=== PATIENT | female | born 1975 | race Two or more races ===

== ENCOUNTER 2025-01-09 21:33 | Emergency (ER) | payer MEDICAID, OTHER ==
[~2025-01-09] VITALS: Ht 152.4 cm; Wt 62.0 kg
[2025-01-09 22:22] VITALS: BP 131/84; PULSE 78; RESP 18; TEMP 98.4; O2SAT 98
[2025-01-09] MEDS: KETOROLAC TROMETH 60MG/2ML VIAL IM ONE (22:56)
--- NOTE | 2025-01-09 23:14 | DVH ---
CLINICAL INDICATION: PAIN TECHNIQUE: XY R TIB FIB XRAY Comparison: None FINDINGS/IMPRESSION: : There is no evidence of acute fracture or dislocation. Soft tissues are unremarkable.
--- NOTE | 2025-01-09 23:22 | ED.PDOC ---
Back pain HPI HPI Comments PT PRESENTED TO ED FOR RLE PAIN X1 DAY. PT DENIED NUMBNESS/TINGLING, (-) TRAUMA/FALLS/INJURIES. PT STATED SHE WAS TENDING TO HER PLANTS WHEN SUDDEN ONSET OF SHARP PAIN RADIATING FROM LOWER CALF TO THIGH ONLY WHEN BARING WEIGHT. CSM-INTACT. NORMAL ROM. NO SKIN DISCOLORATION NOTED. 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 History Family History Family History: Unknown Social History Smoker: Non-Smoker Alcohol: Denies ETOH Use Drugs: Denies Drug Use Constitutional: denies: chills, diaphoresis, fatigue, fever, malaise, sweats, weakness, others EENTM: denies: blurred vision, double vision, ear bleeding, ear discharge, ear drainage, ear pain, ear ringing, eye pain, eye redness, hearing loss, mouth pain, mouth swelling, nasal discharge, nose bleeding, nose congestion, nose pain, photophobia, tearing, throat pain, throat swelling, voice changes, others Cardiovascular: denies: chest pain, dizzy spells, diaphoresis, Dyspnea on exertion, edema, irregular heart beat, left arm pain, lightheadedness, palpitati ons, PND, syncope, others Gastrointestinal: denies: abdomen distended, abdominal pain, blood streaked bowels, constipated, diarrhea, dysphagia, difficulty swallowing, hematemesis, melena, nausea, poor appetite, poor fluid intake, rectal bleeding, rectal pain, vomiting, others Genitourinary: denies: abnormal vagina bleeding, burning, dyspareunia, dysuria, flank pain, frequency, hematuria, incontinence, pain, , vagina discharge, urgency, others Neurological: denies: dizziness, fainting, headache, left sided numbness, left sided weakness, numbness, paresthesia, pre-existing deficit, right sided numbness, right sided weakness, seizure, speech problems, tingling, tremors, weakness, others Musculoskeletal: reports: others (Right lower leg pain); denies: back pain, gout, joint pain, joint swelling, muscle pain, muscle stiffness, neck pain Integumetry: denies: bruises, change in color, change in hair/nails, dryness, laceration, lesions, lumps, rash, wounds, others Allergic/Immunocompromised: denies: Difficulty Healing, Frequent Infections, Hives, Itching, others Hematologic/Lymphatic: denies: anemia, blood clots, easy bleeding, easy bruising, swollen glands, others Endocrine: denies: excessive hunger, excessive sweating, excessive thirst, excessive urination, flushing, intolerance to cold, intolerance to heat, unexpla ined weight gain, unexplained weight loss, others Psychiatric: denies: anxiety, bipolar disorder, depression, hopeless, panic disorder, schizophrenia, sleepless, suicidal, others Physical Exam General Appearance: No Apparent Distress, Normal HEENT: Pharynx Normal Neck: Full Range of Motion, Non-Tender Respiratory: Lungs Clear, No Respiratory Distress, Normal Breath Sounds Cardiovascular: No Murmur, Normal Peripheral Pulses, Regular Rate/Rhythm Breast Exam: Deferred Gastrointestinal: Non Tender, Soft Genitalia: Deferred Pelvic: Deferred Rectal: Deferred Extremities: No calf tenderness, Normal capillary refill, Normal inspection, Normal range of motion, Non-tender, No pedal edema Musculoskeletal : Apperance: Normal Neurologic: Alert, energy conservation technician II-XII nml as Tested, No Motor Deficits, Normal Affect, Normal Mood, No Sensory Deficits Cerebellar Function: Normal Reflexes: Normal Skin: Dry, Normal Color, Warm Lymphatic: No Adenopathy Was a procedure done? Was a procedure done?: No Back Pain Differential Dx Differential Diagnosis: Fracture, Musculoskeletal Pain, Strain X-Ray, Labs, Meds, VS Vital Signs Date Time Temp Pulse Resp B/P (MAP) Pulse Ox O2 Delivery O2 Flow Rate FiO2 01/09/25 22:22 78 18 98 Room Air 01/09/25 22:22 98.4 78 18 131/84 (100) 98 98.4 01/09/25 22:14 98.4 78 18 131/84 (100) 98 98.4 Current Medications Medications (Trade) Dose Ordered Sig/Sae Route Start Time Stop Time Status Last Admin Ketorolac Tromethamine (Toradol Injection) 60 mg ONCE ONCE IM 01/09/25 22:45 01/09/25 22:46 DC 01/09/25 22:56 X-Ray, Labs, Meds, VS Comment Right tib-fib x-ray shows no acute fractures, dislocations or osseous lesions. Likely muscle strain. Advised to rest elevate ice and heat as discussed [id number] Tylenol or Motrin as needed for the pain per labeled dosing instructions. Follow up with your PCP in 2-3 days as necessary consider further imaging such as MRI if symptoms persist. ER return precautions given patient indicates understanding agrees with discharge plan of care. Time of 1ST Reevaluation: 23:21 Reevaluation 1ST: Improved Patient Education/Counseling: Diagnosis, Treatment, Prognosis, Need For Follow Up Family Education/Counseling: No Family Present Departure 1 Departure Time of Disposition: 23:21 Impression: Primary Impression: Muscle strain of right lower extremity Qualified Codes: S86.911A - Strain of unspecified muscle(s) and tendon(s) at lower leg level, right leg, initial encounter Disposition: HOME / SELF CARE / HOMELESS Condition: Stable Discharged With: Self Critical Care Note Critical Care Time?: No Stability Stability form required: MESHA Quinn January 09, 2025 23:22
== END 2025-01-09 23:30 | disposition home or self-care (01) ==
LOC: ER 21:33
DX: S86.911A Strain of unspecified muscle(s) and tendon(s) at lower leg level, right leg, initial encounter (principal); Z88.5 Allergy status to narcotic agent; X58.XXXA Exposure to other specified factors, initial encounter; Y93.89 Activity, other specified; Y92.89 Other specified places as the place of occurrence of the external cause; Y99.8 Other external cause status
CPT/HCPCS: 73590; 96372; 99283; J1885